=== PATIENT | male | born 1960 | race Caucasian/White ===

== ENCOUNTER 2019-07-23 13:56 | Emergency (ER) | payer BC, OTHER, SELFPAY ==
[2019-07-23 13:56] VITALS: BP 146/91; PULSE 66; RESP 18; TEMP 36.1; O2SAT 99; BMI 28.2
--- NOTE | 2019-07-23 14:12 | RAD_ITS ---
STUDY: X-RAY - RIGHT HAND, ATTENTION SECOND FINGER REASON FOR EXAM: Male, 58 years old. smashed tip of finger TECHNIQUE: 3 view(s) of the finger were obtained. COMPARISON: None. FINDINGS: Laceration at the tip of the second digit. Metallic foreign body within the soft tissues near the mid shaft proximal phalanx of the second digit. Unsure if this is related to acute injury. No evidence of fracture. RAD/Finger(s) Min 2 Views IMPRESSION: As detailed above Electronically Signed: Orlando Urena DO at 14:55 EST Tel , Service support ,
--- NOTE | 2019-07-23 15:18 | ED.VIS.GEN ---
History of Present Illness Chief Complaint: Laceration Detail of Chief Complaint: Crush injury with laceration right index finger Informant: Patient Onset: Today Context: Sudden Onset Timing: Continuous Current Severity: Presently no pain Maximum Severity: Severe Worsened by: Injury Relieved by: Nothing Associated Symptoms: Nothing Narrative: Patient is a middle-aged [id number] male presents with crush injury to his right index finger. He sustained a laceration on the volar radial side of his finger. He denies paresthesia, anesthesia motors. Tetanus unknown. He is on no anticoagulant. He has no other complaints. Prior similar symptoms: No Recent Illness/Hospitalization: No - Past Medical History (1) No significant past medical history Status: Acute Past Medical History - Allergies and Home Meds Allergies/Adverse Reactions: Allergies No Known Allergies Allergy (Verified 07/23/19 13:59) Primary Care Physician: Andreas Barton III, MD [Primary Care Provider] - Prior records reviewed: No Surgical History: no surgical history Lives: Spouse/ Significant Other Smoking Status: Never smoker Drugs: None Review of Systems Musculoskeletal: Reports: Swelling, Extremity Pain. Denies: Myalgias, Arthralgias, Neck pain, Back pain, -, - Skin: Reports: Wounds. Denies: Rash Neurological: Denies: Weakness, Parasthesia, Numbness Hematologic: Denies: Easy bruising, Easy bleeding Physical Exam Vital Signs/Narrative: Vital Signs Temp Pulse Resp BP Pulse Ox 07/23/19 13:56 97 F L 66 18 146/91 H 99 Inital Vital Signs reviewed: Yes General: Well nourished, Well developed, No Acute Distress Head: Normocephalic, Atraumatic Eyes: Perrl, EOMI Cardiovascular: Regular rate Respiratory: No distress Extremities: Nontender, - - Is a curvilinear laceration predominantly on the radial side of the right index finger. There is no subungual hematoma. The extensor in the site tendon is intact. The flexor digitorum superficialis and flexor digitorum profundus are intact. Two-point discrimination is abnormal on the radial volar side of the index finger. There is no abnormality on the ulnar side and on the dorsal radial side two-point termination was intact. This would indicate injury to the radial volar digital nerve. This may also represent neuropraxia secondary from blunt crushing injury.. Negative for: No edema Skin: Normal color, Trauma Neurological: Alert, Oriented x3, Cranial nerves II-XII grossly intact, Normal Strength. Negative for: Normal Sensation Psychological: Normal affect Diagnostic/Tx/Re-eval Chest X-Ray - ED: Read by ED Physician, - - X-ray of the right index fingers pain. There is no foreign body nor is there a fracture noted. - Medical Decision Making With crush injury and abnormal two-point discrimination will obtain x-ray to evaluate for fracture. Digital block was placed. This was placed prior to patient going to x-ray. When patient returned from x-ray he was anesthetized and had no sensation. He is read procedure note Procedures - Lacerations No standard instances Length: 1.38 in Depth: Sub Q Shape: Curvilinear Prep: Sergio Laceration repair: Irrigated, Nerve block Irrigated (ml): 250 Number of Sutures/Melida: 8 Suture Information: Ethilon, Simple, 5-0 Comment: Tolerated procedure without difficulty. Patient was instructed on appropriate home-going care and discharge with appropriate home-going instructions. ED Disposition - Plan for ED Patient: Disposition: Home or Assisted Living Diagnosis: Laceration of finger Instructions: LACERATION, Hand Referrals: Andreas Barton III, MD [Primary Care Provider] - 7 Days for suture removal Additional Instructions: In wound 3 times a day with peroxide on Q-tips. Then apply bacitracin ointment. Keep wound clean and dry for the next 24 to 48 hours as much as possible.
[2019-07-23] MEDS: Diphth,Pertuss(Acell),Tet Vac 0.5 ML Vial IM (15:26)
[2019-07-23 15:39] VITALS: BP 133/89; PULSE 62; RESP 15
== END 2019-07-23 15:49 | disposition home or self-care (01) ==
PROVIDERS: Emergency Provider Emergency Medicine; PCP Family Medicine
DX: S61.210A Laceration without foreign body of right index finger without damage to nail, initial encounter (principal); S67.190A Crushing injury of right index finger, initial encounter; X58.XXXA Exposure to other specified factors, initial encounter; Y93.9 Activity, unspecified; Y92.9 Unspecified place or not applicable
CPT/HCPCS: 12002; 73140; 90471; 90715; 99284

== ENCOUNTER 2023-06-03 12:30 | Outpatient (RCR) | payer BC, SELFPAY ==
--- NOTE | 2023-05-04 12:59 | HP.PTEVAL ---
Patient's Visit Information Visit Information Visit Information: AURELIANO DAVENPORT is a 62 year old M referred to Physical Therapy by Dr. Álvaro Thrasher MD with a diagnosis of OSTEOARTHRITIS OF RIGHT KNEE. Date of Evaluation: 05/04/23 Physical Therapist: Ned Pulido PT, Cert MDT, OCS Visit Plan Frequency: 2x /Week Duration: 6WEEKS Plan: PT INTERVTIONS ROM KNEE , FLEXABILITY ,STRENGTHENING QUADS/HAMS/HIP , AND FUNCTIONAL STRENGTHNEING FOR PREHAB FOR TKA Subjective Subjective: This 62 y/o male presents to physical therapy with right knee OA. Patient has had knee pain for ~ 2years which progressively worsen. Patient had arthroscopic 2 years ago. Pain progressively worsen and had x-rays showed advanced DJD. Dr Recommended pre Rehab and plan for TKA in Jul 2023. Described as dull ache . Patient tried cortisone and gel injections. Aggravating factors squatting/kneeling , stairs extended walking and standing and job demands. Works at [employer]. Alleviating factors rest. Sleeping okay. Patient pain affects QOL and function and job demands. Patient goals to decrease pain. SOCIAL: VOCATION: [employer] Pain Right Knee: Pain Intensity (Out of 10): 5 Pain Intensity Range: 10 Objective Objective: POSTURE: WFL GAIT: reciprocal pattern with mild stance time RLE PALAPTION: medial/lateral joint line NEURO: denies paresthesia/tingling AROM: 0-120 degrees supine flexion right MMT: ( peak force) quads 63.9 ,hamstrings 50.9 ,hip abduction /hip flexion 4/5 ,ankle 5/5 FLEXABILITY: hamstrings mod right STAIRS: alternating steps with rail Special Tests R Knee Myke - Meniscus: Negative R Knee Yash - ACL: Negative R Knee Valgus - MCL: Negative R Knee Varus - LCL: Negative R Knee Patellar Apprehension - PFS: Positive Balance/Special Test Scores Lower Extremity Functional Score: 28 Goals Goal 1:: Patient to be I with HEP for knee OA Goal Time Frame: 4-6 Weeks Goal 2:: Patient to improve quality of gait with less antalgic gait 80% Goal Time Frame: 4-6 Weeks Goal 3:: Patient demonstrate 50% improvement with decrease ROM and function Goal Time Frame: 4-6 Weeks Goal 4:: Patient to improve AROM knee flexion 5-10 degrees to improve function Goal Time Frame: 4-6 Weeks Goal 5:: Patient to improve LEFS score by 5 points to improve QOL and function Goal Time Frame: 4-6 Weeks Rehabilitation Potential Physical Therapy Diagnosis: This patient has progressive DJD right knee with antalgic gait ,ROM loss impairs job demands and housework task thus benefit benefit from skilled PT for Prehab for TKA Rehabilitation Potential: Good Anticipated Interventions Patient/Client Instruction: Educate patient on: Condition and Plan of Care For the Purpose of:: To decrease pain, To increase ROM, To improve muscle performance and motor function, To improve ability to perform ADL's, To increase tolerance to activity/condition/position, To improve ability of physical actions for home/community/work/leisure, To improve health of tissue, To decrease soft tissue restriction and To increase flexibility/ROM Therapeutic Exercise to Include: Strength training, Endurance training, Balance training, Flexibilty training, Passive ROM and Active ROM Comment: QUADS/HAMS/HIP For the Purpose of:: To decrease pain, To increase ROM, To improve muscle performance and motor function, To improve ability to perform ADL's, To increase tolerance to activity/condition/position, To improve ability of physical actions for home/community/work/leisure, To improve health of tissue, To decrease soft tissue restriction, To increase flexibility/ROM and To improve endurance Text: Thank you for the opportunity to evaluate your patient. For Medicare and Medicare HMO plans, please review the plan of care and approve it. It will need to be FAXED BACK to us at [phone] for Medicare purposes. For Medicare only, by signing this I certify the plan of care. Please let me know if there are questions or concerns regarding this plan of care. Physician Signature: Date:
--- NOTE | 2023-06-03 13:05 | HP.PTDCS(2) ---
Discharge Summary D/C Summary: It has been my pleasure to treat AURELIANO DAVENPORT referred by Dr. Álvaro Thrasher MD, with the diagnosis of for a total of visit(s). Discharge Date: Please see the following information for a summary of their discharge status. D/C Information d/c sentence: If there are questions or concerns regarding this patient's physical therapy, please feel free to call me at [phone]. Thank you for the referral of this patient. Sincerely, Ned Pulido PT, Cert MDT, OCS
--- NOTE | 2023-06-03 15:56 | HP.PTDCNRP_ITS ---
Patient Information Patient Information: AURELIANO DAVENPORT was seen in my office for initial evaluation on 05/04/23. The following Plan of Care was established for this patient: POC Established Initial Frequency: 2x /Week Initial Duration: 6WEEKS Anticipated Interventions Patient/Client Instruction: Educate patient on: Condition and Plan of Care For the Purpose of:: To decrease pain, To increase ROM, To improve muscle performance and motor function, To improve ability to perform ADL's, To increase tolerance to activity/condition/position, To improve ability of physical actions for home/community/work/leisure, To improve health of tissue, To decrease soft tissue restriction and To increase flexibility/ROM Therapeutic Exercise to Include: Strength training, Endurance training, Balance training, Flexibilty training, Passive ROM and Active ROM For the Purpose of:: To decrease pain, To increase ROM, To improve muscle perf ormance and motor function, To improve ability to perform ADL's, To increase tolerance to activity/condition/position, To improve ability of physical actions for home/community/work/leisure, To improve health of tissue, To decrease soft tissue restriction, To increase flexibility/ROM and To improve endurance Last Seen Last Seen: This patient was last seen in our office . Pertinent comments regarding their Physical therapy will appear below: At this point I will be discontinuing this patient from physical therapy. I would be happy to see this patient again in the future if found appropriate by the physician. Thank you! Ned Pulido, PT, Cert MDT, OCS Balance/Gait/Functional tests Balance/Special Test Scores Lower Extremity Functional Score: 55
--- NOTE | 2023-06-03 15:57 | HP.PTDCSUM ---
Discharge Summary D/C summary: It has been my pleasure to treat AURELIANO DAVENPORT referred by Dr. Álvaro Thrasher MD, with the diagnosis of OSTEOARTHRITIS OF RIGHT KNEE for a total of 9 visit(s). Discharge Date: Please see the following information for a summary of their discharge status. Subjective Subjective: Ready for surgery Otherwise doing okay Pain Right Knee: Pain Intensity (Out of 10): 0 Overall Improvement % Improvement: 50 Objective Objective/Function: POSTURE: WFL GAIT: reciprocal pattern PALAPTION: medial/lateral joint line NEURO: denies paresthesia/tingling AROM: 0-125 degrees supine flexion right MMT: ( peak force) quads 63.9 ,hamstrings 50.9 ,hip abduction /hip flexion 4/5 ,ankle 5/5 FLEXABILITY: hamstrings mod right STAIRS: alternating steps with rail Goals Goal 1:: Patient to be I with HEP for knee OA Goal 2:: Patient to improve quality of gait with less antalgic gait 80% Goal Progress: Goal Met Goal 3:: Patient demonstrate 50% improvement with decrease ROM and function Goal Progress: Goal Met Goal 4:: Patient to improve AROM knee flexion 5-10 degrees to improve function Goal Progress: Goal Met Goal 5:: Patient to improve LEFS score by 5 points to improve QOL and function Plan Plan: D/C D/C Information d/c sentence: If there are questions or concerns regarding this patient's physical therapy, please feel free to call me at [phone]. Thank you for the referral of this patient. Sincerely, Ned Pulido, PT, Cert MDT, OCS Balance/Gait/Functional tests Balance/Special Test Scores Lower Extremity Functional Score: 55 Improvement % Improvement: 50
== END 2023-06-03 19:00 | disposition home or self-care (01) ==
LOC: PT 12:30
PROVIDERS: PCP Family Medicine; Visit Provider Orthopaedic Surgery
DX: M17.11 Unilateral primary osteoarthritis, right knee (principal)
CPT/HCPCS: 97110; 97162; 97530

== ENCOUNTER 2023-10-01 08:30 | Outpatient (RCR) | payer BC, SELFPAY ==
--- NOTE | 2023-07-22 10:56 | HP.PTEVAL ---
Patient's Visit Information Visit Information Visit Information: AURELIANO DAVENPORT is a 62 year old M referred to Physical Therapy by Dr. Álvaro Thrasher MD with a diagnosis of s/p R TKA 07/19/23. Date of Evaluation: 07/22/23 Physical Therapist: Manjit Chandler, DPT, OCS, CSCS Visit Plan Frequency: 3x /Week Duration: 4-6 Weeks Plan: 3x/week for 5-6 weeks for 1. patellar mobs, ROM R knee, stretch HS and quad, strength R knee to tolerance 2. ice as needed, gait training, stair training to tolerance Subjective Subjective: R TKA 07/19/23 [facility]. present. Bad night sleeping due to lots of pain last night. Has been doing lots of short walks. Taking percoset as directed. Pain last night to 9/10 anterior R knee. First two nights are better. Has ice machine. HEP: HS , ankle pumps, QS, GS, . relaxing in all kinds of positions. Normally sleeps. Works at [employer] but retiring october 12 and may not go back, walks on concrete all day long. Hobbies: woodworking, [employer], home farm. Basic ADLS: 3 steps to enter with railing and using L leg. Dresses needs help adn does the waist down. going to bathroom mosty onhis own, needs help to sit and will get toilet seat riser today. Using walker now to get around, not prior. Pain R knee: Pain Intensity (Out of 10): 4 Pain Intensity Range: 0 and 9 Objective Objective: R knee girth 20 inch and 24 inch, L knee joint line 18 R knee -10 to 50 degree ROM vs 0-135 L. R knee strength quad 4# and HS 30# TUG 22 seconds Walking with walker With stiff R knee avoiding toe off knee flexion and heel strike until cued then slightly better. transfers I but uses L leg to move R LE. Unble to SLR R or move it without help from other leg. Stands without AD easily. but unable to walk without walker today mostly movement problems are due to pain. Balance/Special Test Scores WOMAC Total Score: 80 WOMAC Percentatge: 0 Goals Goal 1:: ST: 0-110 AROM to help with funciton Goal Time Frame: 2-4 Weeks Goal 2:: ST: sleep through night without waking and baseline pain 0-2/10 Goal Time Frame: 2-4 Weeks Goal 3:: LT : walk without gait deviations without AD community Goal Time Frame: 4-6 Weeks Goal 4:: steps reciprocally with one rail Goal Time Frame: 4-6 Weeks Goal 5:: I appropriate HEP for continued management Goal Time Frame: 4-6 Weeks Goal 6:: WOMAC score 20 or less Goal Time Frame: 4-6 Weeks Rehabilitation Potential Physical Therapy Diagnosis: knee weakness pain and stiffness effecting funciton after TKA Rehabilitation Potential: Good Anticipated Interventions Patient/Client Instruction: Educate patient on: Condition and Plan of Care For the Purpose of:: To decrease pain, To decrease swelling/inflammation, To increase ROM, To improve nutrient delivery to tissue, To improve muscle performance and motor function, To increase tolerance to activity/condition/position, To improve ability of physical actions for home/community/work/leisure and To improve gait and locomotor functions Therapeutic Exercise to Include: Strength training, Balance training, Postural training, Flexibilty training, Gait and locomotor training, Passive ROM and Active ROM For the Purpose of:: To decrease pain, To decrease swelling/inflammation, To increase ROM, To improve nutrient delivery to tissue, To improve muscle performance and motor function, To increase tolerance to activity/condition/position, To improve ability of physical actions for home/community/work/leisure and To improve gait and locomotor functions Manual Therapy Techniques to Include: Scar massage, Mobilization, Passive ROM and Soft tissue mobilization For the Purpose of:: To decrease pain, To increase ROM and To improve nutrient delivery to tissue Cryotherapy (ice pack, ice massage): Yes For the Purpose of:: To decrease pain and To decrease swelling/inflammation Text: Thank you for the opportunity to evaluate your patient. For Medicare and Medicare HMO plans, please review the plan of care and approve it. It will need to be FAXED BACK to us at [phone] for Medicare purposes. For Medicare only, by signing this I certify the plan of care. Please let me know if there are questions or concerns regarding this plan of care. Physician Signature: Date:
--- NOTE | 2023-08-27 14:23 | HP.PTREVAL_ITS ---
Re-Evaluation Intro: Dr. Álvaro Thrasher MD, It has been my pleasure to treat AURELIANO DAVENPORT over the last 16 visits for s/p R TKA 07/19/23. Please see the progress note below for an update on the physical therapy plan of care! Subjective Subjective: Getting better. Pain daily is 4-5/10. 3/10 today intermittently . Sleeping is still interrupted as he willwake up with pain. To doctor next Wednesday Dr Thrasher. Taking oxycodone 2/day. Objective Objective/Function: -2-110 AROM, pain and lack of relaation is the limiting factor. Walking with slight R antalgia but I, steps reciproca with one rail without much pain. Up off floor with r knee hurts and needs UE support but able. Doing well with ROM and funciton but pain is hgiher than we like and still keeps him up at night, will address this with doctor next week. Plan Plan Plan: 3x/week x 4 weeks for working toward I gym program, continued ROM and patellar mobs and quad muscle relaxation Cotninue toward goals and fair prognosis. Balance/Gait/Functional tests Balance/Special Test Scores WOMAC Total Score: 33 WOMAC Percentage: 65.6300 Goals Goals Goal 1:: ST: 0-110 AROM to help with funciton Goal Time Frame: 2-4 Weeks Goal Progress: Goal Met Goal 2:: ST: sleep through night without waking and baseline pain 0-2/10 Goal Time Frame: 2-4 Weeks Goal Progress: Not Progressing, approp Goal 3:: LT : walk without gait deviations without AD community Goal Time Frame: 4-6 Weeks Goal Progress: Progressing, approp Goal 4:: steps reciprocally with one rail Goal Time Frame: 4-6 Weeks Goal Progress: Goal Met Goal 5:: I appropriate HEP for continued management Goal Time Frame: 4-6 Weeks Goal Progress: needs gym Goal 6:: WOMAC score 20 or less Goal Time Frame: 4-6 Weeks Goal Progress: Progressing Anticipated Interventions Anticipated Interventions Patient/Client Instruction: Educate patient on: Condition and Plan of Care For the Purpose of:: To decrease pain, To decrease swelling/inflammation, To increase ROM, To improve nutrient delivery to tissue, To improve muscle performance and motor function, To increase tolerance to activity/condition/position, To improve ability of physical actions for home/community/work/leisure and To improve gait and locomotor functions Therapeutic Exercise to Include: Strength training, Balance training, Postural training, Flexibilty training, Gait and locomotor training, Passive ROM and Active ROM For the Purpose of:: To decrease pain, To decrease swelling/inflammation, To increase ROM, To improve nutrient delivery to tissue, To improve muscle performance and motor function, To increase tolerance to activity/ condition/position, To improve ability of physical actions for home/community/work/leisure and To improve gait and locomotor functions Manual Therapy Techniques to Include: Scar massage, Mobilization, Passive ROM and Soft tissue mobilization For the Purpose of:: To decrease pain, To increase ROM and To improve nutrient delivery to tissue Cryotherapy (ice pack, ice massage): Yes For the Purpose of:: To decrease pain and To decrease swelling/inflammation Re-Evaluation Ending Re-evaluation ending: Please do not hesitate to contact me at [phone] by phone or if you have questions or concerns regarding this new plan of care! Sincerely, Manjit Chandler, DPT, OCS, CSCS
--- NOTE | 2023-10-01 09:21 | HP.PTDCSUM ---
Discharge Summary D/C summary: It has been my pleasure to treat AURELIANO DAVENPORT referred by Dr. Álvaro Thrasher MD, with the diagnosis of s/p R TKA 07/19/23 for a total of 29 visit(s). Discharge Date: 10/01/23 Please see the following information for a summary of their discharge status. Subjective Subjective: Feels best after after he leaves here until mid afternoon. Pain in the last week has been up to 2-3 unless he overdoes something. Sleep is OK and better, still wakes up a couple times at night if painful. Activities are pretty normal at home outside of squatting or stooping Has been out in shop Pain R knee: Pain Intensity (Out of 10): 1 Overall Improvement % Improvement: 80 Objective Objective/Function: 0-115 AROM R knee, still feels stiff. Walks normal without gait deviations although slightly wide MIRNA I with good heel strike and toe off, steps reciprocal without rail Goals Goal 1:: ST: 0-110 AROM to help with funciton Goal Progress: Goal Met Goal 2:: ST: sleep through night without waking and baseline pain 0-2/10 Goal Progress: Not Progressing, approp Goal 3:: LT : walk without gait deviations without AD community Goal Progress: Progressing, approp Goal 4:: steps reciprocally with one rail Goal Progress: Goal Met Goal 5:: I appropriate HEP for continued management Goal Progress: needs gym Goal 6:: WOMAC score 20 or less Goal Progress: Progressing Plan Plan: d/c to gyma dn HEP D/C Information d/c sentence: If there are questions or concerns regarding this patient's physical therapy, please feel free to call me at [phone]. Thank you for the referral of this patient. Sincerely, Manjit Chandler, DPT, OCS, CSCS Balance/Gait/Functional tests Balance/Special Test Scores WOMAC Total Score: 27 WOMAC Percentage: 69.3200 Improvement % Improvement: 80
== END 2023-10-01 19:00 | disposition home or self-care (01) ==
LOC: PT 08:30
PROVIDERS: PCP Family Medicine; Referring Provider Orthopaedic Surgery; Visit Provider Orthopaedic Surgery
DX: M17.11 Unilateral primary osteoarthritis, right knee (principal)
CPT/HCPCS: 97110; 97140; 97161; 97530